=== PATIENT | male | born 1930 | race Caucasian/White ===

== ENCOUNTER 2016-08-24 12:17 | Day surgery (SDC) | payer OTHER, MEDICARE ==
[~2016-08-24 12:17] MED LIST: LIDOCAINE W/ SODIUM BICARB 0.5 ML SYR ONE
[2016-08-24] MEDS ORDERED: LIDOCAINE 2% 20 MG/ML - 20 ML VIAL IM ONE (12:30)
[2016-08-24] MEDS ORDERED: BETAMET ACET/BETAMET NA PH 6 MG/1 ML - 5 ML IAC ONE (12:30)
[2016-08-24] MEDS ORDERED: ROPIVACAINE HCL 7.5 MG/1 ML - 20 ML IAC ONE (12:30)
[2016-08-24 13:06] VITALS: RESP 16; TEMP 98.2
--- NOTE | 2016-08-24 14:20 | DI ---
US UP/LOW EXT VEINS U/L OR LTD,08/24/2016 12:56 PM: Clinical History: Right lower stomach pain. Previous Exam: None at this facility. Findings: Multiple grayscale and color Doppler sonographic images are obtained of the right lower extremity, an d demonstrate no evidence of deep venous thrombosis. There is a large fluid collection measuring greater than 10 cm in long axis dissecting along the supe rior soft tissues of the posterior medial calf. Impression: 1. No evidence of deep venous thrombosis. 2. Large complex fluid collection within the medial calf. This could represent a dissecting Lozano's c yst or hematoma or other cystic mass. Correlate clinically and if appropriate, consider MRI.
== END 2016-08-24 13:51 | disposition home or self-care (01) ==
LOC: SDSC 12:17
PROVIDERS: ATTEND Orthopaedic Surgery
DX: M16.12 Unilateral primary osteoarthritis, left hip (principal)
CPT/HCPCS: 20610 ×2; 76000; 93971; J0702; J2001

== ENCOUNTER → 2017-01-03 | Outpatient (CLI) | payer OTHER, MEDICARE ==
[2010-11-13 13:24] VITALS: BP 126/71
--- NOTE | 2017-01-04 10:19 | DI ---
XR HIP B/L MIN 2VW, EACH HIP,01/03/2017 2:37 PM: Clinical History: Hip arthritis. Previous Exam: None at this facility. Findings: AP and crosstable lateral views of both hips are obtained, and demonstrate loss of joint space within the right hip with some sclerosis and osteophyte formation especially along the weightbearing surfac e. A few peripheral vascular calcifications are seen. The left hip demonstrates a prominent bone formation at the head neck junction of the left superior l ateral femur. A nonobstructive bowel gas pattern is seen. Mild degenerative changes of the lumbar spine are noted as well. Impression: 1. Degenerative changes of both hips worse on the right than the left. 2. 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 Correlate clinically.
== END ==
LOC: ORTHO 14:50
PROVIDERS: ATTEND Orthopaedic Surgery
DX: M16.0 Bilateral primary osteoarthritis of hip (principal); M25.852 Other specified joint disorders, left hip
CPT/HCPCS: 73521

== ENCOUNTER 2017-01-04 12:05 | Day surgery (SDC) | payer OTHER, MEDICARE ==
[~2017-01-04 12:05] MED LIST changes: +BETAMET ACET/BETAMET NA PH 6 MG/1 ML - 5 ML ONE; +Iopamidol Inj 61% 50 ML VIAL ONE; +LIDOCAINE MPF 2% - 5 ML (20 MG/1 ML) ONE; +ROPIVACAINE HCL 7.5 MG/1 ML - 20 ML ONE
[2017-01-04] MEDS ORDERED: LIDOCAINE W/ SODIUM BICARB 0.5 ML SYR ONE (12:46)
[2017-01-04 14:45] VITALS: RESP 15; TEMP 98.7
== END 2017-01-04 13:05 | disposition home or self-care (01) ==
LOC: SDSC 12:05
PROVIDERS: ATTEND Orthopaedic Surgery
DX: M16.11 Unilateral primary osteoarthritis, right hip (principal)
CPT/HCPCS: 20610; 76000; J0702; J2001

== ENCOUNTER → 2017-01-12 | Outpatient (CLI) | payer OTHER, MEDICARE ==
[2010-11-13 13:24] VITALS: BP 126/71
== END ==
LOC: MMPC 10:00
PROVIDERS: ATTEND Physician Assistant
DX: M47.26 Other spondylosis with radiculopathy, lumbar region (principal); M16.12 Unilateral primary osteoarthritis, left hip; M16.11 Unilateral primary osteoarthritis, right hip
CPT/HCPCS: 99213; G0463

== ENCOUNTER 2017-01-26 08:03 | Day surgery (SDC) | payer OTHER, MEDICARE ==
[~2017-01-26 08:03] MED LIST changes: -BETAMET ACET/BETAMET NA PH 6 MG/1 ML - 5 ML ONE; +BUPivacaine Inj 0.25% PF - 10ml vial IV ONE; +DEXAMETHASONE PF 10 MG/1 ML VIAL IV ONE; +Iopamidol Inj 61% 50 ML VIAL INTRATHEC ONE; -Iopamidol Inj 61% 50 ML VIAL ONE; -LIDOCAINE MPF 2% - 5 ML (20 MG/1 ML) ONE; -LIDOCAINE W/ SODIUM BICARB 0.5 ML SYR ONE; -ROPIVACAINE HCL 7.5 MG/1 ML - 20 ML ONE; +TRIAMCINOLONE ACETONIDE 40 MG/1 ML IAC ONE
--- NOTE | 2017-01-26 09:04 | GEN.OPNOTE ---
Interlaminar YRIS Procedure: Interlaminar Epidural Steriod Injection Procedure Code - Neurosurgery: 90312 : Lumbar Epidural Injection (Single) -: Consent: Rationale for procedure, nature of procedure, possible risks and benefits were discussed with the patient. Risks including allergic reaction to medications, known effects of steroid medications including transient elevation in blood sugar with aggravation of pre-existing diabetes and remote risk of aseptic necrosis of the hip. Pain at the injection site, inadvertent dural puncture with resultant in CSF leak and headache possibly requiring further treatment. Infection or bleeding with potential risk of neurologic injury with weakness, paralysis or were all reviewed with the patient who wished to proceed. Anesthesia, sedation: No intravenous access or sedation was used. Physiologic monitoring of pulse and oxygen saturation was utilized. Procedure: The patient was placed prone on the operating room table, prepped with Chloroprep and sterilely draped. The skin was anesthetized with 1% Buffered Xylocaine. Under fluoroscopic control a 22-gauge Touhy needle was advanced into the epidural space at the L34 level. Using loss-of- resistance technique the epidural space was identified. Omnipaque was injected under real- time fluoroscopy demonstrating an epidurogram. Following this 1 ml of a mixture of triamcinolone(40mg/ml), 10 mg dexamethasone and 1% lidocaine was injected epidurally. AP and lateral images of the final needle placement were obtained. The needle was removed and the patient returned to the post procedure recovery room where they were monitored for any side effects. Pain assessment: Preprocedure pain []/10, post procedure pain []/10. Discharge instructions: Patient was given a pain log to be filled out and returned. A delayed response to the steroids of 2-5 days was discussed.
[2017-01-26 09:44] VITALS: RESP 18; TEMP 97.1
== END 2017-01-26 09:12 | disposition home or self-care (01) ==
LOC: SDSC 08:03
PROVIDERS: ATTEND Pain Medicine Interventional Pain Medicine
DX: M47.26 Other spondylosis with radiculopathy, lumbar region (principal); M16.12 Unilateral primary osteoarthritis, left hip; M16.11 Unilateral primary osteoarthritis, right hip
CPT/HCPCS: 62322; 76000; J3301; S0020; J1100